=== PATIENT | male | born 1940 | race Caucasian/White ===

== ENCOUNTER 2017-05-10 13:19 | Outpatient (CLI) | payer MEDICARE, OTHER ==
--- NOTE | 2017-05-10 14:00 | RAD ---
PA AND LATERAL CHEST: History: Dyspnea. Comparison: 07-31-16 FINDINGS: Mild cardiomegaly is again noted. Interstitial prominence in the lower lung hopkins bilaterally appear stable. No evidence of infiltrate or consolidation. No evidence of significant interval change. IMPRESSION: Prominent interstitial markings in the lower lung hopkins appear stable from prior exam. No acute inte rval change noted. POS: [facility]
== END 2017-05-10 13:20 | disposition home or self-care (01) ==
LOC: RAD 13:19
PROVIDERS: ATTEND Internal Medicine Critical Care Medicine
DX: R06.00 Dyspnea, unspecified (principal); R91.8 Other nonspecific abnormal finding of lung field
CPT/HCPCS: 71046

== ENCOUNTER 2017-06-06 13:46 | Outpatient (CLI) | payer MEDICARE, OTHER | END 2017-06-06 13:47 | disposition home or self-care (01) | LOC: CP 13:46 | PROVIDERS: ATTEND Internal Medicine Critical Care Medicine | DX: J84.10 Pulmonary fibrosis, unspecified (principal) | CPT/HCPCS: 94060; 94727; 94729 ==

== ENCOUNTER 2017-11-13 07:53 | Outpatient (CLI) | payer MEDICARE, OTHER ==
--- NOTE | 2017-11-13 11:00 | CT ---
CT CHEST NONCONTRAST: HIGH RESOLUTION CHEST CT: CLINICAL HISTORY: Positive rheumatoid factor, rheumatoid arthritis, with pulmonary disease (M05.79). FINDINGS: There is diffuse interstitial opacification of the lungs, bilaterally, involving all pulmonary lobes, with associated honeycombing and subpleural ground glass opacities. When referencing the August [address], there has been improvement of the dense consolidation of the medial aspect of the right uppe r lobe, although there has been slight progression with regard to fibrosis. With regard to the trache obronchial tree, there is a mild degree of bilateral bronchiectasis. There is no pleural effusion or pneumothorax. The regional soft tissues, including the lymph nodes a nd vasculature, are limited in assessment on the basis of the thin section discontiguous high-resolut ion protocol. There is a vague, ill defined, hypodensity, laterally, within the right kidney, incomp letely visualized and not reliably assessed on the basis of this exam. There is scattered atheroscle rosis. There is a small hiatal hernia. IMPRESSION: 1. Evidence of pulmonary fibrosis, the degree of which has progressed from a 09/13/[address], al though an area of dense consolidation of the medial right upper lobe has resolved. There is mild bro nchiectasis. 2. Diffuse atherosclerosis. POS: [facility]
== END 2017-11-13 07:54 | disposition home or self-care (01) ==
LOC: SCSCT 07:53
PROVIDERS: ATTEND Internal Medicine Rheumatology
DX: M05.79 Rheumatoid arthritis with rheumatoid factor of multiple sites without organ or systems involvement (principal); J84.10 Pulmonary fibrosis, unspecified; J47.9 Bronchiectasis, uncomplicated; I70.90 Unspecified atherosclerosis
CPT/HCPCS: 71250

== ENCOUNTER 2018-06-11 07:37 | Outpatient (CLI) | payer MEDICARE, OTHER ==
--- NOTE | 2018-06-11 11:04 | CT ---
CT CHEST WITHOUT CONTRAST HIGH RESOLUTION: HISTORY: R06.02 R92.1 Idiopathic pulmonary fibrosis. COMPARISON: High resolution CT from 11/13/2017. FINDINGS: The exam was only able to be performed in the supine position. No prone images were obtained. There is subpleural and bilateral reticular opacities with honeycombing and traction bronchiectasis. There are absence of features, listed as inconsistent with a UIP pattern. This is as an apical basi lar gradient. No profuse micronodules. No significant ground glass. Overall, the findings have pro gressed from the 2018 examination. No suspicious pulmonary nodules. No pericardial effusion. Limited evaluation of the upper abdomen a ppears unremarkable. The skeleton is unremarkable. IMPRESSION: Findings meeting the criteria for usual interstitial pneumonia, which has progressed from 2018. POS: [facility]
== END 2018-06-11 07:38 | disposition home or self-care (01) ==
LOC: CP 07:37 → CT 07:38
PROVIDERS: ATTEND Internal Medicine Critical Care Medicine
DX: J84.112 Idiopathic pulmonary fibrosis (principal)
CPT/HCPCS: 71250; 94060; 94727; 94729

== ENCOUNTER 2018-08-21 10:49 | Outpatient (CLI) | payer MEDICARE, OTHER ==
--- NOTE | 2018-08-21 12:08 | BD ---
DEXA BONE SCAN: HISTORY: Age related osteoporosis. COMPARISON: Previous exam from 11/09/2016. LUMBAR SPINE BMD (g/cm2) T-SCORE Z-SCORE L1 1.40 2.9 3.9 L2 1.51 3.8 4.9 L3 1.62 4.7 5.8 L4 1.58 4.4 5.5 COMPOSITE 1.53 4.0 5.1 LEFT FEMORAL NECK 0.72 -1.6 -0.2 COMPOSITE 1.05 0.1 1.0 Findings suggest normal bone mineral density. The patient has the following FRAX score: Major osteoporotic fracture risk: 33% Hip fracture risk: 23% IMPRESSION: Increased bone mineral density of the lumbar spine, possibly due to changes of spondylosis. The sh[place] ent's bone mineral density of the left hip suggests osteopenia. There is some increased risk of oste oporotic fractures. The T-score of the left hip is slightly improved when compared to the previous e xam from one year earlier. POS: [facility]
== END 2018-08-21 10:50 | disposition home or self-care (01) ==
LOC: BICMAMMO 10:49
PROVIDERS: ATTEND Internal Medicine Rheumatology
DX: M81.0 Age-related osteoporosis without current pathological fracture (principal)
CPT/HCPCS: 77080

== ENCOUNTER 2018-09-02 11:00 | Emergency (ER) | payer MEDICARE, OTHER ==
[2018-09-02] MEDS ORDERED: Morphine 4 MG/ML VIAL ONE (14:15)
[2018-09-02 14:50] LABS: #Basophils 0.1 thou/uL (0.0-0.2); #Eosinphils 0.1 thou/uL (0.0-0.7); #Lymphocytes 0.4 thou/uL (1.20-3.40); #Monocytes 0.6 thou/uL (0.11-0.59); #Neutrophils 6.4 thou/uL (1.40-6.50); %Basophils 0.8 % (0.0-1.0); %Eosinophils 0.9 % (0.0-10.0); %Lymphocytes 5.9 % (21.0-51.0); %Monocytes 7.4 % (0.0-10.0); Mean Corpuscular HGB CONC 31.8 g/dL (32.0-36.0); Mean Corpuscular Hemoglobin 30.1 pg (27.0-31.0); Mean Corpuscular Volume 94.7 fL (78.0-98.0); Mean Platelet Volume 7.4 fL (7.4-10.4); Platelet Count 264 thou/uL (130-400); RBC Distribution Width 14.5 % (11.5-14.5); Red Blood Cell (RBC) Count 4.99 mill/uL (4.70-6.10); White Blood Cell (WBC) Count 7.6 thou/uL (4.8-10.8)
[2018-09-02 15:12] LABS: ALT (SGPT) 20 U/L (8-55); AST (SGOT) 22 U/L (5-34); Albumin 3.8 g/dL (3.4-4.8); Alkaline Phosphatase 59 U/L (40-150); Anion Gap 15 mmol/L (10-20); BUN (Urea Nitrogen) 11 mg/dL (8.4-25.7); Bilirubin, Total 0.8 mg/dL (0.2-1.2); Calc. Creatinine Clearance 0 mL/min (70-130); Calcium 8.9 mg/dL (7.8-10.44); Carbon Dioxide 23 mmol/L (23-31); Chloride 108 mmol/L (98-107); Estimated GFR-MDRD Greater than 90; Globulin 2.4 g/dL (2.4-3.5); Glucose 130 mg/dL (83-110); Potassium 3.9 mmol/L (3.5-5.1); Protein, Total 6.2 g/dL (5.8-8.1); Sodium 142 mmol/L (136-145)
--- NOTE | 2018-09-02 15:26 | CT ---
CT Lumbar Spine WO Con History: [Back pain] Comparison: None. Findings: Abnormal calcifications of the left adrenal gland which may be sequelae of prior hemorrhage . The aortic contour is nonaneurysmal. Multiple large bridging osteophytes the lumbar spine. No acute fracture or malalignment. Ossification of the supraspinous ligament lower thoracic spine. 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 Transverse processes are intact. Levels are as follows: L1/L2: There is ossification of the disc. Large left lateral recess flowing osteophyte. Moderate left neural foraminal narrowing. No significant spinal canal narrowing. L2/3: Circumferential disc bulge. No significant neural foraminal or spinal canal narrowing. L3/L4: Mild degenerative posterior disc space height loss. Moderate facet arthrosis. Bridging right l ateral osteophyte narrows the right extraforaminal space. Moderate right neural foraminal narrowing. Mild left neural foraminal narrowing. Spinal canal is narrowed due to increased posterior pleural fat to approximately 4-5 mm. L4/L5: Circumferential disc bulge, greatest in the right lateral recess the subcutaneous zone area an d moderate right neural foraminal narrowing. Spinal canal measures approximately 8 mm. L5/S1: Mild bilateral subcutaneous posterior disc osteophyte complexes. Moderate facet arthropathy. M oderate bilateral neural foraminal narrowing. Impression: 1. Multilevel spondylosis as described. No acute fracture or malalignment. 2. Osseous fusion of the SI joints as well as abnormal calcifications of the supraspinous ligament of the thoracic spine can be seen with reactive arthritis.
== END 2018-09-02 20:54 ==
LOC: ERS 11:00
DX: M79.604 Pain in right leg (principal); R26.2 Difficulty in walking, not elsewhere classified; I10 Essential (primary) hypertension; M06.9 Rheumatoid arthritis, unspecified; K21.9 Gastro-esophageal reflux disease without esophagitis; F41.9 Anxiety disorder, unspecified; Z87.891 Personal history of nicotine dependence; Z79.899 Other long term (current) drug therapy
CPT/HCPCS: 36415; 72131; 80053; 84484; 85025; 93005; 96374; J2270

== ENCOUNTER 2018-12-04 13:23 | Outpatient (CLI) | payer MEDICARE, OTHER | END 2018-12-04 13:24 | disposition home or self-care (01) | LOC: CP 13:23 | PROVIDERS: ATTEND Internal Medicine Critical Care Medicine | DX: J84.112 Idiopathic pulmonary fibrosis (principal) | CPT/HCPCS: 94060; 94727; 94729 ==

== ENCOUNTER 2019-04-07 08:54 | Emergency (ER) | payer MEDICARE, OTHER ==
[2019-04-07] MEDS ORDERED: Norepinephrine 8 MG/0.9% NS 250 ML ONE (09:09)
[2019-04-07 09:33] LABS: Hemoglobin 11.1 g/dL (14.0-18.0); Mean Corpuscular Hemoglobin 32.3 pg (27.0-31.0); Mean Platelet Volume 7.6 fL (7.4-10.4); Platelet Count 135 thou/uL (130-400); RBC Distribution Width 13.9 % (11.5-14.5); Red Blood Cell (RBC) Count 3.45 mill/uL (4.70-6.10); White Blood Cell (WBC) Count 2.5 thou/uL (4.8-10.8)
[2019-04-07 09:51] LABS: ALT (SGPT) 919 U/L (8-55); AST (SGOT) 1086 U/L (5-34); Acetaminophen Less than 6.0 mcg/mL (10.0-30.0); Albumin 2.5 g/dL (3.4-4.8); Alcohol 15 mg/dL (Less than 10); Alkaline Phosphatase 54 U/L (40-110); Anion Gap 34 mmol/L (10-20); BUN (Urea Nitrogen) 12 mg/dL (8.4-25.7); Bilirubin, Total 0.7 mg/dL (0.2-1.2); Calc. Creatinine Clearance 0 mL/min (70-130); Calcium 7.4 mg/dL (7.8-10.44); Chloride 109 mmol/L (98-107); Estimated GFR-MDRD 52; Globulin 2.1 g/dL (2.4-3.5); Glucose 261 mg/dL (83-110); Potassium 4.2 mmol/L (3.5-5.1); Protein, Total 4.6 g/dL (5.8-8.1); Salicylate Less than 8.0 mg/dL (15.0-30.0); Sodium 148 mmol/L (136-145)
[2019-04-07 09:57] LABS: Band 5 % (5-11); Eosinophils 1 % (0-10); Lymphocytes 69 % (21-51); MDiff Complete? YES; Metamyelocyte 1 % (0-0); Monocytes 14 % (0-10); Myelocyte 2 % (0-0); Neutrophil 7 % (42-75); Nucleated RBC 1 % (0); Platelet Morphology Comment Appears Adequate; Polychromasia SLIGHT = 2-3 cells (100X) (0-2/hpf); Reactive Lymphocytes 1 % (0-10)
[2019-04-07 10:09] LABS: Carbon Dioxide 9 mmol/L (23-31)
== END 2019-04-07 09:23 | disposition expired ==
LOC: ERS 08:54
DX: I46.9 Cardiac arrest, cause unspecified (principal); I10 Essential (primary) hypertension; M06.9 Rheumatoid arthritis, unspecified; K21.9 Gastro-esophageal reflux disease without esophagitis; F41.9 Anxiety disorder, unspecified; Z87.891 Personal history of nicotine dependence
CPT/HCPCS: 80053; 80307; 82553; 83605; 84484; 85025; 92950; 93005; 96374; 96375; 96376